=== PATIENT | female | born 1950 | race Caucasian/White ===

== ENCOUNTER 2022-04-10 10:51 | Emergency (ER) | payer MEDICARE, OTHER ==
[~2022-04-10] VITALS: Ht 154.9 cm; Wt 72.1 kg
== END 2022-04-10 13:50 | disposition home or self-care (01) ==
LOC: ER 10:51
DX: S01.81XA Laceration without foreign body of other part of head, initial encounter (principal); W01.0XXA Fall on same level from slipping, tripping and stumbling without subsequent striking against object, initial encounter; Z88.2 Allergy status to sulfonamides
CPT/HCPCS: 70450; A9270

== ENCOUNTER 2022-04-21 19:57 | Inpatient (IN) | payer MEDICARE, OTHER ==
[~2022-04-21] VITALS: Ht 154.9 cm; Wt 77.4 kg
--- NOTE | 2022-04-21 22:30 | NUR ---
PT ARRIVED FROM [facility] A DIRECT TRANSFER VIA EMS. PT IS ALERT AND ORIENTED X3. LEVOPHED IS INFUSING AT 6MCGS/MIN. SHE IS ON 3L NC W/OXYGEN SAT >90%. SHE IS VERY WEAK BUT ABLE TO ART. SHE HAS A HEMATOMA/ABRASION ON HER LEFT FOREHEAD W/SOME DRY YELLOW DRAINAGE NOTED. THERE IS ALSO SOME DRY YELLOW DRAINAGE NOTED AROUND BOTH HER EYES WITH THE LEFT BEING WORSE THAN THE RIGHT. SHE HAS A TREMOR THAT SHE REPORTS IS NOT NEW AND THAT SHE HAS DISCUSSED W/HER DR. SHE IS SR AT THIS TIME ON THE [employer]. SHE IS AFEBRILE AT THIS TIME. SHE HAS A PAUL CATHETER FROM PREVIOUS FACILITY DRAINING TEA COLORED URINE. SHE DENIES PAIN AT THIS TIME.
[2022-04-21 23:22] LABS: BASOPHILS ABSOLUTE AUTO 0.03 K/mm3 (0.00-0.23); BASOPHILS PERCENT AUTO 0 % (0-2); EOSINOPHILS ABSOLUTE AUTO 0.08 K/mm3 (0.00-0.68); EOSINOPHILS PERCENT AUTO 1 % (0-6); Hematocrit 25.3 % (33.0-51.0); Hemoglobin 8.4 g/dL (11.5-16.0); IMMATURE GRAN ABSOLUTE AUTO 0.06 K/mm3 (0.00-0.10); IMMATURE GRAN PERCENT AUTO 1 % (0-1); LYMPHOCYTES ABSOLUTE AUTO 1.09 K/mm3 (0.84-5.20); LYMPHOCYTES PERCENT AUTO 10 % (21-46); MONOCYTES ABSOLUTE AUTO 0.81 K/mm3 (0.16-1.47); MONOCYTES PERCENT AUTO 8 % (4-13); Mean Corpuscular HGB 31.5 pg (26.0-34.0); Mean Corpuscular HGB Conc 33.2 g/dL (31.5-36.5); Mean Corpuscular Volume 95 fL (80-100); Mean Platelet Volume 10.4 fL (9.1-12.4); NEUTROPHILS ABSOLUTE AUTO 8.43 K/mm3 (1.96-9.15); NEUTROPHILS PERCENT AUTO 80 % (41-73); Platelet Count 107 K/mm3 (150-400); RDW Coefficient Variation 13.2 % (11.7-14.2); RDW Standard Deviation 45.6 fL (35.1-46.3); Red Blood Cell Count 2.67 M/mm3 (3.80-5.20)
[2022-04-21 23:40] LABS: Albumin, Blood 2.1 g/dL (3.4-5.0); Albumin/Globulin Ratio 0.7 (0.8-1.8); Bilirubin, Total 1.1 mg/dL (0.1-1.0); Bun/Creatinine Ratio 28.4 (12.0-20.0); Calcium, Blood 7.7 mg/dL (8.5-10.1); Creatinine, Blood 1.16 mg/dL (0.40-1.00); Globulin, Blood 3.1 g/dL (2.2-4.0); Potassium, Blood 3.9 mmol/L (3.5-5.5); Total Protein, Blood 5.2 g/dL (6.4-8.2)
[2022-04-21 23:42] LABS: International Normalized Ratio 1.19; Prothrombin Time Results 12.4 Sec (9.7-11.5)
[2022-04-22 02:53] LABS: BASOPHILS ABSOLUTE AUTO 0.03 K/mm3 (0.00-0.23); BASOPHILS PERCENT AUTO 0 % (0-2); EOSINOPHILS ABSOLUTE AUTO 0.11 K/mm3 (0.00-0.68); EOSINOPHILS PERCENT AUTO 1 % (0-6); Hematocrit 21.8 % (33.0-51.0); Hemoglobin 7.3 g/dL (11.5-16.0); IMMATURE GRAN ABSOLUTE AUTO 0.16 K/mm3 (0.00-0.10); IMMATURE GRAN PERCENT AUTO 2 % (0-1); LYMPHOCYTES ABSOLUTE AUTO 0.97 K/mm3 (0.84-5.20); LYMPHOCYTES PERCENT AUTO 10 % (21-46); MONOCYTES ABSOLUTE AUTO 0.76 K/mm3 (0.16-1.47); MONOCYTES PERCENT AUTO 8 % (4-13); Mean Corpuscular HGB 31.7 pg (26.0-34.0); Mean Corpuscular HGB Conc 33.5 g/dL (31.5-36.5); Mean Corpuscular Volume 95 fL (80-100); NEUTROPHILS ABSOLUTE AUTO 8.16 K/mm3 (1.96-9.15); NEUTROPHILS PERCENT AUTO 80 % (41-73); Platelet Count 115 K/mm3 (150-400); RDW Standard Deviation 44.8 fL (35.1-46.3); White Blood Cell Count 10.19 K/mm3 (4.00-11.30)
[2022-04-22 03:15] LABS: Albumin, Blood 1.8 g/dL (3.4-5.0); Albumin/Globulin Ratio 0.8 (0.8-1.8); Bilirubin, Total 1.6 mg/dL (0.1-1.0); Calcium, Blood 6.4 mg/dL (8.5-10.1); Creatinine, Blood 0.9 mg/dL (0.40-1.00); Globulin, Blood 2.3 g/dL (2.2-4.0); Potassium, Blood 3.2 mmol/L (3.5-5.5); Total Protein, Blood 4.1 g/dL (6.4-8.2)
[2022-04-22 03:36] LABS: Phosphorus, Blood 1.9 mg/dL (2.5-4.9)
[2022-04-22 04:27] LABS: Source, Urine Foley catheter
[2022-04-22 04:30] LABS: Bilirubin, Urine Neg (Neg); Blood, Urine 4+ (Neg); Glucose Qualitative, Urine Neg (Neg); Ketones, Urine 2+ (Neg); Leukocyte Esterase, Urine 2+ (Neg); Nitrite, Urine Neg (Neg); Protein, Urine 3+ (Neg); Specific Gravity, Urine 1.015 (1.003-1.022); Urobilinogen, Urine 2+ (Normal)
[2022-04-22 05:31] LABS: Appearance, Urine Cloudy (Clear); Color, Urine Yellow (P-Yellow)
[2022-04-22 05:33] LABS: Amorphous Mod (0-Heavy); Bacteria Mod /hpf; Squamous Epithelial Cells Rare /hpf (Few)
--- NOTE | 2022-04-22 05:46 | NUR ---
SPOKE TO DR EPSTEIN REGARDING PT UA RESULTS, PROCALCITONIN AND BNP RESULTS. NO NEW ORDERS GIVEN AT THIS TIME.
--- NOTE | 2022-04-22 07:41 | NUR ---
Receieved report from Maru HILARIO. Patient is sleeping intermitently. She awakwened and drowsy and answered simple questions and went back to sleep. She is on 2L O2 via NC and sats >95%. She has bilateral 18ga IV's sites WNL's. Right Iv infusing potassium phos and the right IV infusing Levophed at 2 mcg/kg/hr and just placed on standby as systolic 133, currently 114. She has bilateral LE SCD's in place. She has scabing to left side ofher face including area above left eye and eye itself that happened last week with some oozing of puss, bruising to left side of face and neck. Stated had fall while staying in hotel last week when visiting family, see pics. temp 98.0.
--- NOTE | 2022-04-22 09:47 | NUR ---
Patient has been resting. She had Echo done. Levophed remains off and systolic >100. She tolerates PO med while awake. Dr Esteban by to see her. VSS. She remains on 2L O2 via NC and sats >90%. No other significant changes. Famil and caregiver called and gave upsdate.
--- NOTE | 2022-04-22 11:30 | NUR ---
Patient has been resting. Dietary came by and spoke with patient. Placed on ADA diet. Set her up with lunch and she is indepentent. She continues on 2L O2 via NC and sats 93%. She asked to get up to shower after lunch. Patient remains very tremulous and weakness.
[2022-04-22 11:38] LABS: Magnesium, Blood 2.8 mg/dL (1.6-2.4); Phosphorus, Blood 2.8 mg/dL (2.5-4.9); Potassium, Blood 3.9 mmol/L (3.5-5.5)
--- NOTE | 2022-04-22 14:29 | NUR ---
Patient sleeping with intermitent awakening. She is appropriate with her care. She remains on 2L O2 via NC and sats >90%. She uses call light appropriately. No significant changes with patient. Her woulds are all healing stage and dried.
--- NOTE | 2022-04-22 16:36 | NUR ---
Patient has been talking with family on phone. She got to shower chair with pivot from bed and was able to tale short shower, she went with O@. Linen changed and she was pulled up and repositioned. She continues on 2L O2 via NC and sats >90%. She stated she wants to rest as shower took alot out of her.
--- NOTE | 2022-04-22 18:09 | NUR ---
Gave report to Med RN. Patient is finishing dinner and will transfer up in wheelchair. All belongings are bagged up and will go with patient/ She is on 2L O2 via NC and sats >90%. She pivoted from bed to wheelchair. All IV's SL'd.
--- NOTE | 2022-04-22 19:19 | NUR ---
PT ALERT NO S/S OF ACUTE DISTRESS. SAFETY MEASURES IN PLACE REPORT GIVEN TO ON COMING NURSE.
[2022-04-22] MEDS ORDERED: WIXELA 500-501 EAC1 INH (22:22)
[2022-04-22] MEDS ORDERED: PRED5 PO (22:22)
[2022-04-22] MEDS ORDERED: TIOT18 INH (22:23)
[2022-04-22] MEDS ORDERED: MONT10T PO (22:24)
[2022-04-22] MEDS ORDERED: CARVEDILOL6.25 MG PO (22:24)
[2022-04-22] MEDS ORDERED: BASAGLAR K100 UNIT/3 SC (22:24)
[2022-04-22] MEDS ORDERED: LATA.005SO BOTHEYES (22:25)
[2022-04-22] MEDS ORDERED: AMLODIPINE BESYL5 MG PO (22:25)
[2022-04-22] MEDS ORDERED: Prozac20 MG PO (22:25)
[2022-04-22] MEDS ORDERED: FUROSEMIDE20 MG PO (22:26)
[2022-04-22] MEDS ORDERED: KLOR-CON 1010 ME9 PO (22:26)
[2022-04-22] MEDS ORDERED: TELMISARTAN20 MG PO (22:26)
[2022-04-22] MEDS ORDERED: PANTOPRAZOLE SO40 M2 PO (22:27)
[2022-04-22] MEDS ORDERED: TRULICITY1.5 MG/0.1 SC (22:27)
[2022-04-22] MEDS ORDERED: QUETIAPINE FUMA25 MG PO (22:27)
[2022-04-22] MEDS ORDERED: Simvastatin40 MG PO (22:28)
[2022-04-22] MEDS ORDERED: NOVOLOG FL100 UNIT/3 SC (22:32)
[2022-04-22] MEDS ORDERED: Atarax10 MG PO (22:33)
--- NOTE | 2022-04-23 06:50 | NUR ---
WEAVER TIRE CORD SUMMARY: A&Ox4. PLEASANT AND COOPERATIVE WITH CARE. CALLS APPROPRIATELY AND IS ABLE TO COMMUNICATE NEEDS EFFECTIVELY. WOUND LEFT FOREHEAD CRUSTED OVER AND HEALING WELL WITHOUT EXUDATE. DECLINED C / O PAIN. LOW-GRADE FEVER AT BEDTIME FOR WHICH SHE RECEIVED APAP. WILL REPORT TO ONCOMING RN.
--- NOTE | 2022-04-23 08:00 | NUR ---
pt laying in bed watching tv, a/ox3, pleasant and cooperative with care, follows commands well, reports pain in her knees, tylenol will be given, lungs are clear in upper k[place], fine crackles in bases, currently on 2 liters 02 via n/c which is her home dose, no cough noted, hrr, no edema noted at this time, ppp +1, cap refill <3 sec, vs stable, afebrile, iv sites are clear and patent, btx4, abd flat soft nontender, voids via barajas cath at this time, draining clear yellow urine, skin has multiple bruising to left arm, left forhead and jaw, states she's had multiple fall because her gait is unsteady, and wilbur, elena, weak, gildardo, call light in reach.
[2022-04-23 09:13] LABS: Hemoglobin 8.3 g/dL (11.5-16.0)
[2022-04-23 09:47] LABS: Bun/Creatinine Ratio 39.7 (12.0-20.0); Creatinine, Blood 0.76 mg/dL (0.40-1.00); Potassium, Blood 3.6 mmol/L (3.5-5.5)
[2022-04-23] MEDS ORDERED: TIMO.5OPSO BOTHEYES (15:23)
--- NOTE | 2022-04-23 18:49 | NUR ---
pt chose to stay in bed for dinner, states she's feeling a bit better, no acute changes this shift, call light in reach.
[2022-04-24 06:05] LABS: Bun/Creatinine Ratio 41.5 (12.0-20.0); Calcium, Blood 9.4 mg/dL (8.5-10.1); Creatinine, Blood 0.65 mg/dL (0.40-1.00); Potassium, Blood 3.7 mmol/L (3.5-5.5)
--- NOTE | 2022-04-24 06:07 | NUR ---
PT IS A&O4, 1 ASSIST TO THE COMMODE, 2L NC AT BASELINE, CPAP ORDERED AT NIGHT, PAUL PATENT DRAINING CLEAR YELLOW URINE, NO COMPLAINTS OF PAIN OVERNIGHT, CONTINUE POC
--- NOTE | 2022-04-24 19:45 | NUR ---
PT PLEASANT TODAY. NO C/O PAIN TODAY. DID HAVE 2 B/MS TODAY. LAST ONE COULD NOT CONTAIN AND LOST CONTROL. IN TO VISIT TODAY FROM [facility]. PT HOPEFUL TO GO HOME TOMORROW. DR FOSTER AWARE. NO NEW CONCERNS NOTED. BED IN LOW POSITION, CALL LITE IN REACH, CALLS APPROP
[2022-04-25 05:29] LABS: Hematocrit 23.1 % (33.0-51.0); Mean Corpuscular HGB 31.4 pg (26.0-34.0); Mean Corpuscular HGB Conc 34.6 g/dL (31.5-36.5); Mean Corpuscular Volume 91 fL (80-100); Mean Platelet Volume 10.7 fL (9.1-12.4); Platelet Count 173 K/mm3 (150-400); RDW Coefficient Variation 13.1 % (11.7-14.2); RDW Standard Deviation 43.6 fL (35.1-46.3); Red Blood Cell Count 2.55 M/mm3 (3.80-5.20); White Blood Cell Count 6.93 K/mm3 (4.00-11.30)
[2022-04-25 06:06] LABS: Bun/Creatinine Ratio 41.9 (12.0-20.0); Creatinine, Blood 0.65 mg/dL (0.40-1.00); Potassium, Blood 3.7 mmol/L (3.5-5.5)
--- NOTE | 2022-04-25 07:37 | NUR ---
PATIENT ALERT AND ORIENTED, NO TELE, 2L NC, CPAPA AT NIGHT, 20 LFA SL, ADA DIET, MEDS WHOLE WITH APPLESAUCE, LEFT ANKLE PAIN POSSIBLE SPRAIN, MULTIPLE BM'S 04/24, POSSIBLE D/C HOME TODAY
[2022-04-25] MEDS ORDERED: SPIR25 PO (13:36)
[2022-04-25] MEDS ORDERED: DOXY100 PO (13:36)
--- NOTE | 2022-04-25 15:35 | NUR ---
NOTES/DISCHARGE SUMMARY: NO NEW ACUTE CHANGES IN PATIENT CONDITION THIS SHIFT. PATIENT A&OX4. SLOW TO RESPOND BUT ANSWER TO QUESTIONS APPROPRIATELY. CALM, PLEASANT AND COOPERATIVE C CARE. PATIENT DENIES CP/PRESSURE. PATIENT ON O2, 2L VIA NC c SPO2 OF 97%. PATIENT ON O2 AT BASELINE. DENIES SOB, RR EVEN AND UNLABORED. LUNGS CLEAR/DIM T/O TO AUSCULTATION. PATIENT HAD PAUL. PATENT DRAINING c YELLOW URINE TO GRAVITY. PAUL WAS DC'D AT AROUND 1432. PATIENT WAS ABLE TO VOID URINE ABOUT 50 CC AT AROUND 1520. DENIES PAIN OR TENDERNESS TO SUPRAPUBIC AND LIGIA AREA. VITAL SIGNS REVEIWED. IV TO LAC DC'D. PATIENT DISCHARGE HOME. DISCHARGE INSTRUCTION PACKET GIVEN TO PATIENT. EDUCATE PATIENT REGARDING ADMITTING DX, S/S, TX, AND NEW PRESCRIBED MEDICATIONS. PATIENT STATED UNDERSTANDING AND FURTHER QUESTIONS. RX WAS FAXED TO PATIENT PREFERRED PHARMACY ([facility]). ALL PATIENT PERSONAL BELONGINGS WERE SENT HOME WITH THE PATIENT. PATIENT LEFT THE ROOM AT 1535. PATIENT WAS TRANSPORTED VIA WHEELCHAIR BY [facility] MAINTENANCE STAFF AMARIS TO PATIENT SPOUSE PRIVATE VEHICLE.
== END 2022-04-25 15:34 | disposition home health service (06) | DRG 280 ==
LOC: MEDS 22:10 → ICUW 22:10 → MEDS 04-22 18:23
PROVIDERS: Internal Medicine; ADMIT Student in an Organized Health Care Education/Training Program
PROC: 3E033XZ Introduction of Vasopressor into Peripheral Vein, Percutaneous Approach (ICD-10-PCS; principal; 2022-04-21)
DX: I95.9 Hypotension, unspecified (principal); I21.4 Non-ST elevation (NSTEMI) myocardial infarction; I50.33 Acute on chronic diastolic (congestive) heart failure; J18.9 Pneumonia, unspecified organism; N17.9 Acute kidney failure, unspecified; J96.11 Chronic respiratory failure with hypoxia; J44.0 Chronic obstructive pulmonary disease with (acute) lower respiratory infection; Z66 Do not resuscitate; D63.1 Anemia in chronic kidney disease; R29.6 Repeated falls; S01.81XA Laceration without foreign body of other part of head, initial encounter; W22.8XXA Striking against or struck by other objects, initial encounter; N18.30 Chronic kidney disease, stage 3 unspecified; F41.1 Generalized anxiety disorder; G47.33 Obstructive sleep apnea (adult) (pediatric); E78.5 Hyperlipidemia, unspecified; E11.22 Type 2 diabetes mellitus with diabetic chronic kidney disease; Z88.2 Allergy status to sulfonamides
CPT/HCPCS: 36415; 51703; 70450; 71046; 80048; 80053; 81001; 82947; 83605; 83735; 83880; 84100; 84132; 84145; 84484; 85014; 85018; 85025; 85027; 85610; 85730; 87040; 87086; 93306; 94640; 94660; 94664; 94760; 94762; 97110; 97116; 97162; 97530; A9270; J0690; J0696; J1815; J3370; J3475; J7050; J7060; J7512